=== PATIENT | female | born 1950 | race Caucasian/White ===

== ENCOUNTER 2017-02-06 10:44 | Emergency (ER) | payer OTHER ==
[~2017-02-06] VITALS: Ht 160 cm; Wt 89.8 kg
[2017-02-06] MEDS ORDERED: ADVIL200 M1 PO (10:51)
[2017-02-06] MEDS ORDERED: CARDIZEM CD240 MG PO (11:50)
[2017-02-06] MEDS ORDERED: PENICILLIN V P500 MG PO (11:50)
[2017-02-06] MEDS ORDERED: COUMADIN5 MG PO (11:50)
[2017-02-26] MEDS ORDERED: TURMERIC500 M1 PO (15:40)
[2017-02-26] MEDS ORDERED: METOPROLOL SUCC50 MG PO (15:41)
[2017-02-26] MEDS ORDERED: WARFARIN SODIUM5 MG PO (15:48)
[2017-04-30] MEDS ORDERED: ASPIRIN81 MG PO (14:38)
[2017-04-30] MEDS ORDERED: WARFARIN SODIUM5 MG PO (14:44)
== END 2017-02-06 12:31 | disposition home or self-care (01) ==
LOC: ED 10:44 → EDSEX 10:45 → ED 12:31
DX: I48.91 Unspecified atrial fibrillation (principal); J02.0 Streptococcal pharyngitis; F17.200 Nicotine dependence, unspecified, uncomplicated; Z79.899 Other long term (current) drug therapy
CPT/HCPCS: 71010; 80053; 83735; 84443; 84484; 85025; 96374; 99284

== ENCOUNTER 2017-08-06 20:34 | Emergency (ER) | payer SELFPAY ==
[~2017-08-06] VITALS: Ht 160 cm; Wt 90.7 kg
[~2017-08-06 20:34] MED LIST: ADVIL200 M1 PO; ASPIRIN81 MG PO; CARDIZEM CD240 MG PO; COUMADIN5 MG PO; PENICILLIN V P500 MG PO; TOPROL XL200 MG PO; TURMERIC500 M1 PO; WARFARIN SODIUM5 MG PO
[2017-08-07] MEDS ORDERED: MACROBID 100 M100 MG PO (00:19)
[2017-08-07] MEDS ORDERED: ONDANSETRON ODT4 MG SL (00:19)
--- NOTE | 2017-08-07 17:51 | EKG ---
[facility] [address] [facility] [place] [address] Signed Atrial fibrillation with rapid ventricular response Low voltage QRS Septal infarct , age undetermined Possible Inferior infarct , age undetermined Abnormal ECG When compared with ECG of 20-APR-2017 15:22, Nonspecific T wave abnormality now evident in Anterior leads Confirmed by SLY HILLIARD MD ([id number]) on 08/07/2017 5:51:04 PM Electronically Signed By: SLY HILLIARD MD 08/07/17 1751 PATIENT NAME: CHRISTAL HARDY Electrocardiogram DATE OF : 52 PHYSICIAN: SLY HILLIARD MD REPORT #: [id number] REPORT IS CONFIDENTIAL AND NOT TO BE RELEASED WITHOUT AUTHORIZATION
[2017-12-17] MEDS ORDERED: TOPROL XL200 MG PO (14:03)
== END 2017-08-07 00:47 | disposition home or self-care (01) ==
LOC: ED 20:34
DX: N39.0 Urinary tract infection, site not specified (principal); R42 Dizziness and giddiness; R19.7 Diarrhea, unspecified; R53.81 Other malaise; I48.91 Unspecified atrial fibrillation; Z87.891 Personal history of nicotine dependence; Z79.82 Long term (current) use of aspirin; Z79.01 Long term (current) use of anticoagulants; Z79.899 Other long term (current) drug therapy
CPT/HCPCS: 71045; 80053; 81001; 82550; 82553; 83874; 84484; 85025; 85610; 85730; 87088; 93005; 93010; 96361; 96374; 99284; J2405; J7030

== ENCOUNTER 2018-11-26 05:50 | Day surgery (SDC) | payer MEDICARE ==
[~2018-11-26] VITALS: Ht 160 cm; Wt 104.8 kg
[~2018-11-26 05:50] MED LIST changes: +HYDROCHLOROTH12.5 MG PO; +HYDROCHLOROTHIA25 MG PO; +MACROBID 100 M100 MG PO; +ONDANSETRON ODT4 MG SL; +WARFARIN SODIU2.5 MG PO
--- NOTE | 2018-11-26 08:17 | NUR ---
11/26/18 0817 Suzanne Day 0750 PT ARRIVED IN PACU SLEEPY WITH NO C/O'S. ABD SOFT AND PASSING FLATUS. 0800 PT AWAKE SITTING UP IN BED TALKING WITH STAFF. 0815 JANY AT BEDSIDE HELPING PT GET DRESSED.
--- NOTE | 2018-11-26 10:31 | OR ---
[facility] [address] [place], [place] [address] Signed DATE OF OPERATION: 11/26/2018 SURGEON: Lluvia Farah MD PREOPERATIVE DIAGNOSIS: Screening. POSTOPERATIVE DIAGNOSIS: Moderate sigmoid diverticulosis. PROCEDURE PERFORMED: Colonoscopy without biopsy. ESTIMATED BLOOD LOSS: None. INDICATIONS: Christal is a 68-year-old obese female who was asked to see me for her initial colonoscopy. She has no lower GI complaints. There is no family history of colon cancer or polyps. In the office, I gave her a pamphlet on colonoscopy and we looked at that together in detail. She understands the nature of the test along with the risks including, but not limited to gas bloating, crampy abdominal pain, bleeding, perforation, requiring surgery, and missed diagnosis. She also understands the need for IV conscious sedation. Given her very full face, heavy neck, and her medical history including her atrial fibrillation, we asked that an anesthesia provider help us with increased monitoring and sedation with propofol. She had expressed understanding and wished to proceed. PROCEDURE NOTE: Christal was taken into our endoscopy suite and placed in the left lateral decubitus position. She was given IV sedation with propofol per our nurse business services associate. As expected, she was in atrial fibrillation on the monitor. A digital rectal exam was performed and this was unremarkable. The adult colonoscope was introduced and advanced all around into the cecum under direct visualization of camera without difficulty. Her prep was good. The scope was slowly withdrawn. We took pictures throughout for photodocumentation. She does have diverticula in the sigmoid colon. They were moderate in size, minimal to moderate in number, and scattered about. The rectum was unremarkable. Upon retroflexion of scope, there was no additional pathology noted above the anal canal. After this, the gas was suctioned out and the colonoscope removed. Christal tolerated the procedure quite well. Electronically Signed By: LLUVIA FARAH MD 11/26/18 1031 PATIENT NAME: CHRISTAL HARDY OPERATIVE REPORT DATE OF : 52 REPORT #: [id number] PHYSICIAN: LLUVIA FARAH MD PCP: DEVYN SENIOR MD REPORT IS CONFIDENTIAL AND NOT TO BE RELEASED WITHOUT AUTHORIZATION [facility] [address] [place] [id number] Signed RECOMMENDATIONS: I can see Chrisatl back in the office in 10 years for repeat colonoscopy. MD CATARINO Brown/TREEL /[id number] cc: MD Devyn Barajas MD Andrew L Bower, MD Julio Cesar Doran DO Copies: RACHEL KAUR MD, MALCOLM MD BOWER, ANDREW L MD WARD, JAMES D DO ~ Electronically Signed By: LLUVIA FARAH MD 11/26/18 1031 PATIENT NAME: CHRISTAL HARDY OPERATIVE REPORT DATE OF : 52 REPORT #: [id number] PHYSICIAN: LLUVIA FARAH MD PCP: DEVYN SENIOR MD REPORT IS CONFIDENTIAL AND NOT TO BE RELEASED WITHOUT AUTHORIZATION
--- NOTE | 2018-11-26 13:21 | NUR ---
PT IS ALERT, ORIENTED AND SUPPORTED BY FAMILY. THIS IS PT'S FIRST SCOPE, PREP SEEMED TO BE TOLERABLE FOR PT. PT SEEMED PREPARED, EXTENDED A BLESSING. WILL FOLLOW NEEDED
== END 2018-11-26 08:20 | disposition home or self-care (01) ==
LOC: OPS 05:50 → DS 05:50 → OPS 06:45 → DS 06:45 → OPS 08:20
PROVIDERS: Colon & Rectal Surgery
PROC: 0DJD8ZZ Inspection of Lower Intestinal Tract, Via Natural or Artificial Opening Endoscopic (ICD-10-PCS; principal; 2018-11-26 06:45)
DX: Z12.11 Encounter for screening for malignant neoplasm of colon (principal); K57.30 Diverticulosis of large intestine without perforation or abscess without bleeding; Z79.899 Other long term (current) drug therapy; Z79.01 Long term (current) use of anticoagulants
CPT/HCPCS: G0121; J2704; J7120

== ENCOUNTER 2021-02-05 10:38 | Emergency (ER) | payer MEDICARE ==
[~2021-02-05] VITALS: Ht 160 cm; Wt 98.9 kg
[~2021-02-05 10:38] MED LIST changes: +ATORVASTATIN CA40 MG PO; +CITALOPRAM HBR20 MG PO; +FAMOTIDINE40 MG PO; -HYDROCHLOROTH12.5 MG PO; +LEXAPRO10 MG PO; +PROZAC10 MG PO; +TOPROL XL100 MG PO; +TRAZODONE HCL50 MG PO; +WARFARIN SODIU7.5 MG PO
--- NOTE | 2021-02-05 10:49 | NUR ---
Medications reconciled. Patient is chronically anticoagulated with warfarin and is a patient of [facility]
--- NOTE | 2021-02-05 18:05 | EKG ---
[facility] [address] [facility] [place] [address] Signed Sinus bradycardia Low voltage QRS T wave abnormality, consider anterior ischemia Prolonged QT Abnormal ECG When compared with ECG of 19-NOV-2018 13:42, Sinus rhythm has replaced Atrial fibrillation Minimal criteria for Anterior infarct are no longer present T wave inversion more evident in Anterior leads Confirmed by SLY HILLIARD MD ([id number]) on 02/05/2021 6:05:32 PM Electronically Signed By: SLY HILLIARD MD 02/05/21 1805 PATIENT NAME: CHRISTAL HARDY Electrocardiogram DATE OF : 52 PHYSICIAN: SLY HILLIARD MD REPORT #: [id number] REPORT IS CONFIDENTIAL AND NOT TO BE RELEASED WITHOUT AUTHORIZATION
== END 2021-02-05 13:37 | disposition short-term general hospital (02) ==
LOC: ED 10:38
DX: I63.9 Cerebral infarction, unspecified (principal); I48.91 Unspecified atrial fibrillation; Z87.891 Personal history of nicotine dependence; Z79.899 Other long term (current) drug therapy; Z79.01 Long term (current) use of anticoagulants; Z79.82 Long term (current) use of aspirin; Z20.822 Contact with and (suspected) exposure to COVID-19
CPT/HCPCS: 70450; 70496; 70498; 71045; 80053; 81001; 84484; 85025; 85610; 85730; 93005; 93010; 99285-25; Q3014; Q9967; U0003

== ENCOUNTER 2022-10-16 00:07 | Emergency (ER) | payer MEDICARE ==
[~2022-10-16] VITALS: Ht 160 cm; Wt 97.3 kg
[~2022-10-16 00:07] MED LIST changes: +ACETAMINOPHEN500 MG PO; +IBUPROFEN600 MG PO; +INDAPAMIDE1.25 MG PO; +OXYCODON-ACETA1 EAC2 PO; +TOPAMAX25 MG PO
--- NOTE | 2022-10-16 07:55 | EKG ---
[facility] [address] [facility] [place] [address] Signed Atrial fibrillation Low voltage QRS Nonspecific ST and T wave abnormality Prolonged QT Abnormal ECG Confirmed by SLY HILLIARD MD ([id number]) on 10/16/2022 7:54:42 AM Electronically Signed By: SLY HILLIARD MD 10/16/22 0755 PATIENT NAME: CHRISTAL HARDY Electrocardiogram DATE OF : 52 PHYSICIAN: SLY HILLIARD MD REPORT #: [id number] REPORT IS CONFIDENTIAL AND NOT TO BE RELEASED WITHOUT AUTHORIZATION
== END 2022-10-16 04:46 | disposition home or self-care (01) ==
LOC: ED 00:07
DX: A05.9 Bacterial foodborne intoxication, unspecified (principal); I48.91 Unspecified atrial fibrillation; Z87.891 Personal history of nicotine dependence; Z79.899 Other long term (current) drug therapy; Z79.01 Long term (current) use of anticoagulants
CPT/HCPCS: 36415; 74176; 76705; 80053; 83690; 84484; 85025; 85610; 93005; 93010; 96361; 96374; 96375; 99284-25; A9270; J1790; J2405; J7121

== ENCOUNTER 2024-08-09 10:55 | Inpatient (IN) | payer MEDICARE ==
[~2024-08-09] VITALS: Ht 160 cm; Wt 104.0 kg
[~2024-08-09 10:55] MED LIST changes: +ANASTROZOLE1 MG PO; +ATORVASTATIN CA80 MG PO; +CARTIA XT120 MG PO; +DICLOFENAC SODI50 GM TOP; +FLUOXETINE HCL20 MG PO; +METOPROLOL SUC200 MG PO; +TOPIRAMATE50 MG PO
[2024-08-09] MEDS ORDERED: BUDESONIDE8.43 ML NAS (11:13)
[2024-08-09 11:17] LABS: EOSINOPHILS 3.3 % (0-6); HEMATOCRIT 32.4 % (35.0-50.0); HEMOGLOBIN 9.8 g/dL (12.0-18.0); LYMPHOCYTES 12.1 % (24-44); MCH 24.1 (27-36); MCHC 30.3 g/dl (30-36); MCV 79.4 fl (81-99); MONOCYTES 17.3 % (0-12); NEUTROPHILS 64.3 % (39-80); PLATELET COUNT 147 K/uL (140-440); RBC 4.08 M/ul (4.3-5.7); RDW 17.9 (10.5-15.0)
[2024-08-09 11:23] LABS: PROTIME 75.5 Sec (11.2-14.2)
[2024-08-09 11:27] LABS: INR 9.08 (0.80-1.30)
[2024-08-09] MEDS ORDERED: METOPROLOL TARTRATE 5 MG/5 ML VIAL IV SCH (11:30)
[2024-08-09 11:33] LABS: ALBUMIN/GLOBULIN RATIO 0.73 (1.1-2.4); ANION GAP 11.6 (7-21); BUN/CREATININE RATIO 12.72 (6.0-28.6); CALCIUM 9.1 mg/dL (8.5-10.1); CREATININE, SERUM 2.2 mg/dL (0.55-1.02); MAGNESIUM 1.8 mg/dL (1.8-2.4); POTASSIUM 3.6 mmol/L (3.5-5.1); PROTEIN, TOTAL 7.1 g/dL (6.4-8.2)
[2024-08-09] MEDS ORDERED: PHYTONADIONE 10 MG in DEXTROSE 5% 50 ML IV ONE (11:45)
[2024-08-09] MEDS ORDERED: FUROSEMIDE 100 MG/10 ML VIAL IV ONE (12:30)
[2024-08-09] MEDS ORDERED: METOPROLOL SUCCINATE 50 MG TABCR PO ONE (12:45)
[2024-08-09 13:11] VITALS: BP 117/97
[2024-08-09] MEDS ORDERED: ondansetron HCL 4 MG/2 ML VIAL IV PRN (13:15)
[2024-08-09] MEDS ORDERED: ACETAMINOPHEN 325 MG TAB PO PRN (13:15)
--- NOTE | 2024-08-09 13:52 | NUR ---
PT REPORT RECIEVED FROM ER, RN. PT TRANSPORTED VIA STRETCHER TO MED/SURG ROOM 8. PT TOLERATED TRANSFER WELL. PT SECONDARY SKIN ASSESSMENT COMPLETED BY KULWINDER LINCOLN. PT GOWN/BEDDING CHANGED AND PUREWICK PLACED. PT CONNECTED TO TELE #7. PT CALL LIGHT WITHIN REACH NO CURRENT NEEDS AT THIS TIME.
--- NOTE | 2024-08-09 15:30 | NUR ---
PT LAYING IN BED WITH HEAD OF BED LEEVATED PT RESTING WITH EYES CLOSED CHEST RISE EQUAL BILAT. CALL LIGHT WITHIN REACH.
[2024-08-09] MEDS ORDERED: WARFARIN SODIUM5 MG PO (15:49)
--- NOTE | 2024-08-09 16:22 | NUR ---
PT IN BED WITH HEAD ELEVATED ABOVE 30 DEGREES, PT RESTING WITH EYS CLOSED AND CHEST RISE EQUAL BILAT. PT CALL LIGHT WITHIN REACH.
--- NOTE | 2024-08-09 17:30 | NUR ---
PT WAS CALLED BECAUSE HE TOOK THE ADMISSION PAPER WORK BY ACCIDENT HOME WITH HIM. SAID HE WILL RETURN TOMORROW THE 6TH IN THE MORNNING WITH THE PAPERS.
[2024-08-09 18:01] VITALS: BP 121/79
--- NOTE | 2024-08-09 18:30 | NUR ---
PT LAYING IN BED AWAKE PT USED CALL LIGHT TO ASK NURSING STAFF TO EMPTY PUREWICK CANISTER. PT HAS NO OTHER CONCERNS AT THIS TIME CALL LIGHT WITHIN REACH.
[2024-08-09 18:41] VITALS: BP 121/79
--- NOTE | 2024-08-09 18:45 | NUR ---
PT SCHEDULED ECHO IS NOW IN PT ROOM PENDING RESULTS. PT HAS NO CONCERNS AT THIS TIME CALL LIGHT WITHIN REACH.
--- NOTE | 2024-08-09 19:20 | NUR ---
REPORT RECEIVED FROM KULWINDER PADILLA AND KULWINDER PIMENTEL. ASSISTANT INVENTORY MANAGER IN ROOM AT THIS TIME. pt DENIES NEEDS.
[2024-08-09 20:11] VITALS: BP 105/61
--- NOTE | 2024-08-09 20:31 | NUR ---
pt RESTING IN BED 100% WITH 2L OXYGEN BY NC IN PLACE. TITRATED TO 1L OXYGEN BY NC, SPO2 94%. LUNG SOUNDS DIMINISHED THROUGHOUT. ASSESSMENT COMPLETE. 2+ EDEMA BLE. LEGS ELEVATED. REPOSITIONED HIGHER IN BED 2PA, pt ASSISTS. NEW ATTENDS, PUREWICK PLACED AT THIS TIME. REDNESS NOTED UNDER BREASTS BILATERALLY, AND IN GROIN AREA, DESENEX APPLIED. BED IN LOW POSITION. CALL LIGHT IN REACH. LIGHTS OFF IN ROOM.
[2024-08-09 20:33] VITALS: BP 105/61
[2024-08-09] MEDS ORDERED: MICONAZOLE NITRATE 1 EA BTL TOP SCH (21:00)
--- NOTE | 2024-08-09 22:44 | NUR ---
CHECKED ON pt. RESTING IN BED WITH EYES CLOSED, BREATHING EQUAL AND UNLABORED. NO DISTRESS NOTED.
[2024-08-10] VITALS (10 sets, daily range): BP systolic 94–106; BP diastolic 61–68
--- NOTE | 2024-08-10 01:14 | NUR ---
pt SLEEPING, AWAKENS TO VOICE. VSS. URINE COLLECTED, CLEAN CATCH AND SENT TO LAB. IV SITE FLUSHED WNL, SL. pt DENIES NEEDS. CALL LIGHT IN REACH.
[2024-08-10 01:20] LABS: BILIRUBIN, URINE NEGATIVE (negative); BLOOD/HGB, URINE MODERATE (Negative); KETONE, URINE NEGATIVE (Negative); LEUK ESTERASE, URINE SMALL (negative); NITRITE, URINE POSITIVE (negative); PH, URINE 5.5 (5-7)
[2024-08-10 01:30] LABS: BACTERIA, URINE 2+ /hpf (negative); CRYSTALS, URINE NONE SEEN (0-1+); EPITHELIAL CELLS, URINE SQUAMOUS 1+ /lpf (0-1+)
[2024-08-10 01:31] LABS: CASTS, URINE NONE SEEN \\lpf
[2024-08-10 01:32] LABS: COLLECTION TYPE, URINE CLEAN CATCH; REFLEX CULTURE, URINE Yes (No)
--- NOTE | 2024-08-10 03:00 | NUR ---
CHECKED On pt. RESTING IN BED WITH EYES CLOSED, 1L OXYGEN BY NC IN PLACE. BREATHING UNLABORED.
[2024-08-10 05:26] LABS: BASOPHILS 1.1 % (0-2); EOSINOPHILS 5.1 % (0-6); HEMATOCRIT 28.2 % (35.0-50.0); HEMOGLOBIN 8.8 g/dL (12.0-18.0); LYMPHOCYTES 25.7 % (24-44); MCH 24.4 (27-36); MCHC 31.2 g/dl (30-36); MCV 78.3 fl (81-99); MONOCYTES 18.3 % (0-12); NEUTROPHILS 49.8 % (39-80); PLATELET COUNT 119 K/uL (140-440)
--- NOTE | 2024-08-10 05:28 | NUR ---
FLOUR BROKER IN ROOM FOR BLOOD DRAW. pt AWAKE. ASSESSMENT COMPLETE. LUNG SOUNDS DIMINISHED, CLEAR, HR IRREGULAR RHYTHM 88-100. TELE IN PLACE. 2+ PITTING EDEMA BLE. REPOSITIONED pt IN BED WITH LEGS ELEVATED. 1L OXYGEN BY NC IN PLACE. NEW PUREWICK AND ATTENDS PLACED. NEAL CARE COMPLETE. CALL LIGHT IN REACH. BED IN LOW POSITION.
[2024-08-10 05:41] LABS: ANION GAP 8.2 (7-21); BUN/CREATININE RATIO 13.94 (6.0-28.6); CALCIUM 8.8 mg/dL (8.5-10.1); CREATININE, SERUM 2.08 mg/dL (0.55-1.02); MAGNESIUM 1.7 mg/dL (1.8-2.4); POTASSIUM 3.2 mmol/L (3.5-5.1)
--- NOTE | 2024-08-10 07:35 | NUR ---
MORNING PT REPORT RECIEVED FROM KULWINDER HULL. PT LAYING IN BED WITH HEAD ELEVATED. PT AWAKE AND HAS NO CONCERNS AT THIS TIME CALL LIGHT WITHIN REACH.
[2024-08-10 07:45] LABS: INR 1.66 (0.80-1.30); PROTIME 19.6 Sec (11.2-14.2)
[2024-08-10] MEDS ORDERED: MAGNESIUM SULFATE 2 GM/50 ML BAG IV SCH (08:00)
[2024-08-10] MEDS ORDERED: POTASSIUM CHLORIDE 10 MEQ TABCR PO ONE ×2 (08:00→12:00)
--- NOTE | 2024-08-10 08:07 | NUR ---
Patient is resting in bed watching TV. Fresh ice water was requested and given.
--- NOTE | 2024-08-10 08:30 | NUR ---
PT SITTING IN BED EATING BREAKFAST, PT STATES " SHE IS FEELING MUCH BETTER TODAY THEN SHE DID YESTERDAY". PT IN ROOM AND RETURNED THE ADMISSION PAPER WORK HE ACIDENTLY TOOK HOME WITH HIM. PT HAS CALL LIGHT WITHIN REACH.
[2024-08-10] MEDS ORDERED: CEFTRIAXONE/SODIUM CHLORIDE 1 GM/100 ML PIGGYBACK IV SCH (09:00)
[2024-08-10] MEDS ORDERED: FUROSEMIDE 40 MG/4 ML VIAL IV SCH (09:00)
[2024-08-10] MEDS ORDERED: METOPROLOL SUCCINATE 100 MG TABCR PO SCH (09:00)
[2024-08-10] MEDS ORDERED: FLUOXETINE HCL 20 MG CAP PO SCH (09:00)
[2024-08-10] MEDS ORDERED: FAMOTIDINE 20 MG TAB PO SCH (09:00)
--- NOTE | 2024-08-10 09:29 | NUR ---
PT NOT AVAILABLE FOR VISIT. PROVIDED PRAYER.
--- NOTE | 2024-08-10 10:31 | NUR ---
Case Management 1000: INTO SEE PATIENT. PERSONAL INFORMATION UPDATED. PATIENT LIVES AT HOME WITH AND HAS ONE STEP TO GET INTO THEIR RESIDENCE, SHE DENIES ANY DIFFCULTY GETTING INTO THE HOUSE OR OUT OF BED. SHE DOES NOT DRIVE BUT PATIENT DRIVES HER. DENIES ANY DIFFICULTY PAYING UTILITIES OR OBTAINING FOOD. PATIENT HAS A WALKER AND CANE THAT SHE USES AT HOME. WILL CONTINUE TO FOLLOW WITH CASE MANAGEMENT. NO NEEDS FROM US AT THIS TIME.
--- NOTE | 2024-08-10 10:39 | NUR ---
Patient is sitting up in their chair. RNs MARGARITO and Terrence in room.
--- NOTE | 2024-08-10 11:04 | NUR ---
PT WORKED WITH PT/OT PT WAS ABLE TO AMBULATE TO BATHROOM WITH CONTACT GAURD. PT WAS ABLE TO HAVE A BM WELL. PT IS BACK IN BED WITH NO OTHER CONCERNS AT THIS TIME. CALL LIGHT WITHIN REACH.
--- NOTE | 2024-08-10 11:28 | NUR ---
UR CLINICAL REVIEW: 2 MN FOR [facility]ERSAL[facility]-MEETS INPT CRITERIA FOR CHF MEDICARE INPT 08/09/24 @ 1240 ORDER MATCHES REG NO AUTH REQUIRED PER MEDICARE GUIDELINES DISCHARGE TO HOME WHEN STABLE
--- NOTE | 2024-08-10 11:42 | NUR ---
PATIENT IS SITTING UPRIGHT IN BED WITH BLE ELEVATED. IV FLUSHED WITH 10 ML NORMAL SALINE. IV MAGNESIUM SULFATE IS INFUSING AT THIS TIME. IV DRESSING IS CLEAN, DRY, AND INTACT. PATIENT GIVEN FRESH CUP OF ICE WATER. PUREWICK CANISTER EMPTIED. PO POTASSIUM CHLORIDE ADMINISTERED AT THIS TIME. MD AND PRIMARY RNS ROUNDED WITH THE PATIENT. PATIENT STATED NO FURTHER NEEDS AT THIS TIME. CALL LIGHT AND PERSONAL BELONGINGS ARE WITHIN REACH.
[2024-08-10] MEDS ORDERED: PHARMACY RENAL DOSE ADJUSTMENT 1 DOSE MISC PO SCH (12:00)
--- NOTE | 2024-08-10 12:01 | NUR ---
IN PT ROOM MD DONNELLY SPOKE WITH PT ABOUT DIAGNOSIS, AND POC. PT WAS AGREEABLE AND HAD NO CURRENT CONCERNS, PT SITTING UPRIGHT IN CHAIR WITH PUREWICK, AND O2 NC IN PLACE @ 1LPM SAT 93%. PT CALL LIGHT IN REACH.
--- NOTE | 2024-08-10 12:51 | NUR ---
PT SITTING UP IN CHAIR, PT HELPED REPOSITION IN CHAIR SO THEY COULD EAT THEIR LUNCH. PT HAS NO OTHER CONCERNS AT THIS TIME. CALL LIGHT WITHIN REACH.
--- NOTE | 2024-08-10 14:27 | NUR ---
Patient sitting up in chair. Requested 300ml of free water.
--- NOTE | 2024-08-10 15:20 | NUR ---
PT SITTING UPRIGHT IN CHAIR WATCHING TV. PT HAS NO CURRENT CONCERNS AT THIS TIME. PT HAS CALL LIGHT WITHIN REACH.
[2024-08-10] MEDS ORDERED: WARFARIN PER PHARMACY PROTOCOL PO SCH (16:00)
[2024-08-10] MEDS ORDERED: WARFARIN SOD 5 MG TAB PO SCH (16:00)
--- NOTE | 2024-08-10 16:37 | NUR ---
PT SITTING UP IN BED WATCHING TV WITH LIGHTS DIMMED. PT HAS NO CURRENT NEEDS AT THIS TIME CALL LIGHT WITHIN REACH.
--- NOTE | 2024-08-10 17:10 | NUR ---
medications reconciled. patient chronically anticoagulated with warfarin
--- NOTE | 2024-08-10 17:33 | NUR ---
PT SITTING UP IN BED EATING DINNER WITH HER AT BED SIDE. PT HAS NO CONCERNS AT THIS TIME CALL LIGHT WITHIN REACH.
--- NOTE | 2024-08-10 19:27 | EKG ---
[facility] [address] [facility] [place] [address] Signed Atrial fibrillation with rapid ventricular response Low voltage QRS Possible Anterolateral infarct , age undetermined Abnormal ECG When compared with ECG of 16-OCT-2022 00:55, No significant change was found Confirmed by Archie Quintero MD ([id number]) on 08/10/2024 7:27:22 PM Electronically Signed By: ARCHIE QUINTERO MD 08/10/[id number] PATIENT NAME: CHRISTAL HARDY Electrocardiogram DATE OF : 52 PHYSICIAN: ARCHIE QUINTERO MD REPORT #: [id number] REPORT IS CONFIDENTIAL AND NOT TO BE RELEASED WITHOUT AUTHORIZATION
--- NOTE | 2024-08-10 19:40 | NUR ---
REPORT RECEIVED FROM DAY SHIFT RN. PT LYING IN BED ALERT AND ORIENTED. DENIES NEEDS. WHITE BOARD UPDATED. CALL LIGHT IN REACH.
--- NOTE | 2024-08-10 21:10 | NUR ---
NEAL AREA, UNDER BREAST FOLD AND INGUINAL FOLD CLEANED AND WIPED DRY. RN APPLIED POWDER. PUREWICK CHANGED. ATTENDS PLACED ON. V/S AND I&O'S COMPLETED. WARM BLANKET PROVIDED. CALL LIGHT IN REACH.
--- NOTE | 2024-08-10 21:51 | NUR ---
EVENING ASSESSMENT COMPLETE. SCHEDULED MEDS ADMIN PER EMAR. PT DENIES PAIN OR NAUSEA. DENIES SOB AT REST. 1L/NC IN PLACE. SpO2 99%. FINE CRACKLES AUSCULTATED IN BILAT LOWER LUNGS. EDEMA NOTED BLE. PUREWICK PATENT WITH CLEAR YELLOW URINE. PT DENIES QUESTIONS OR CONCERNS. CALL LIGHT IN REACH.
--- NOTE | 2024-08-10 23:50 | NUR ---
PT RESTING IN BED WITH EYES CLOSED. RESPIRATIONS EVEN. CALL LIGHT IN REACH.
[2024-08-11] VITALS (11 sets, daily range): BP systolic 98–112; BP diastolic 54–80
--- NOTE | 2024-08-11 02:06 | NUR ---
PT RESTING WITH EYES CLOSED. AWAKENS EASILY. VS OBTAINED. SpO2 97% WITH 1L/NC. OXYGEN TITRATED TO OFF. CPOX IN PLACE. PT DENIES SOB. ASSESSMENT COMPLETE. NO FURTHER NEEDS.
--- NOTE | 2024-08-11 04:00 | NUR ---
PT AWAKE IN BED. SpO2 96% ON RA. HR 100'S. PT REPORTS SLIGHT SOB AFTER OXYGEN REMOVED. 1L/NC PLACED FOR COMFORT. NO FURTHER NEEDS.
[2024-08-11 05:21] LABS: BASOPHILS 0.9 % (0-2); EOSINOPHILS 3.6 % (0-6); HEMATOCRIT 28.5 % (35.0-50.0); HEMOGLOBIN 8.9 g/dL (12.0-18.0); LYMPHOCYTES 17.7 % (24-44); MCH 24.4 (27-36); MCHC 31.1 g/dl (30-36); MCV 78.6 fl (81-99); MONOCYTES 17.4 % (0-12); NEUTROPHILS 60.4 % (39-80); PLATELET COUNT 117 K/uL (140-440); RBC 3.63 M/ul (4.3-5.7); RDW 17.9 (10.5-15.0)
[2024-08-11 05:31] LABS: INR 1.42 (0.80-1.30); PROTIME 17.3 Sec (11.2-14.2)
[2024-08-11 05:32] LABS: ANION GAP 9.1 (7-21); BUN/CREATININE RATIO 13.36 (6.0-28.6); CALCIUM 8.7 mg/dL (8.5-10.1); CREATININE, SERUM 2.02 mg/dL (0.55-1.02); POTASSIUM 3.1 mmol/L (3.5-5.1)
--- NOTE | 2024-08-11 05:52 | NUR ---
LAB IN FOR MORNING DRAW. NEW PUREWICK PLACED AFTER NEAL CARE. VS AND I&O OBTAINED. PT REMAINS ON 1L/NC. SpO2 HIGH 90'S. PT DENIES SOB. SMALL AMOUNT H20 GIVEN. PT REMAINS WELL WITHIN FLUID RESTRICTION. NO FURTHER NEEDS. CALL LIGHT IN REACH.
--- NOTE | 2024-08-11 07:21 | NUR ---
MORNING REPORT RECIEVED FROM KULWINDER HUBER. PT CURRENTLY LAYING IN BED ON 1L NC O2 SAT @ 92% PT CALL LIGHT WITHIN REACH.
[2024-08-11] MEDS ORDERED: POTASSIUM CHLORIDE 10 MEQ TABCR PO SCH (07:45)
--- NOTE | 2024-08-11 08:25 | NUR ---
PT SITTING UPRIGHT IN BED, PT JUST RECIEVED BREAKFAST AND HAS NO CURRENT CONCERNS AT THIS TIME CALL LIGHT WTIHIN REACH.
[2024-08-11] MEDS ORDERED: FAMOTIDINE 20 MG TAB PO SCH (09:00)
--- NOTE | 2024-08-11 09:40 | NUR ---
PT IN ROOM SITTING UPRIGHT IN BED PT TELE BATTERY CHANGED CCU NOTIFIED. PT HAS NO CONCERNS AT THIS TIME. CALL LIGHT WITHIN REACH.
--- NOTE | 2024-08-11 11:06 | NUR ---
ALERT AND ORIENTED IN BED. STATES SHE HAS NO NEEDS AT HOME FROM AT THIS TIME. INFORMED WILL CONTINUE TO CHECK IN WITH HER WHILE SHE IS HERE.
--- NOTE | 2024-08-11 11:37 | NUR ---
PT SITTING IN ROOM WITH BED SIDE. PT REPORTS NO CURRENT NEEDS AT THIS TIME. CALL LIGHT WITHIN REACH.
--- NOTE | 2024-08-11 12:41 | NUR ---
PT SEEN BY MD DONNELLY. PT SITTING IN BED EATING LUNCH WITH HER BED SIDE. PT GIVEN I/S PER MD REQUEST. PT EDUCATED BY THIS RN HOW TO USE IT. CONTINUE TO REINFORCE USE OF I/S. PT CALL SHARI THAKKAR.
--- NOTE | 2024-08-11 13:18 | NUR ---
PT SITTING UP RIGHT IN BED PT HAS NO CONCERNS AT THIS TIME CALL LIGHT WITHIN REACH.
--- NOTE | 2024-08-11 14:27 | NUR ---
PT SITTING UPRIGHT IN BED WITH NO CURRENT NEEDS AT THIS TIME CALL LIGHT WITHIN REACH.
--- NOTE | 2024-08-11 15:13 | NUR ---
New purewick at 1500. Bed linens changed. PT working with patient.
--- NOTE | 2024-08-11 15:53 | NUR ---
PT LAYING IN BED WITH EYES CLOSED AND CHEST RISE EQUAL BILAT. PT HAS CALL LIGHT WITHIN REACH.
[2024-08-11] MEDS ORDERED: WARFARIN SOD 7.5 MG TAB PO SCH (16:00)
--- NOTE | 2024-08-11 16:32 | NUR ---
PT CURRENTLY LAYING IN BED WITH EYES CLOSED AND RESTING. CHEST RISE EQUAL BILAT. PT HAS CALL LIGHT WITHIN REACH.
--- NOTE | 2024-08-11 17:38 | NUR ---
PT SITTING UP IN BED EATING DINNER WITH NO CONCERNS AT THIS TIME. PT AT BED SIDE. PT CALL LIGHT WITHIN REACH.
--- NOTE | 2024-08-11 19:03 | NUR ---
PT SITTING IN ROOM WITH NO CONCERNS AT THIS TIME PT HAS CALL LIGHT WITHIN REACH.
--- NOTE | 2024-08-11 19:38 | NUR ---
REPORT RECEIVED FROM DAY SHIFT RN. PT LYING IN BED RESTING WITH EYES CLOSED. RESPIRATIONS EVEN. CALL LIGHT IN REACH. WHITE BOARD UPDATED.
[2024-08-11] MEDS ORDERED: POTASSIUM CHLORIDE 10 MEQ TABCR PO ONE (20:00)
--- NOTE | 2024-08-11 22:01 | NUR ---
PT RESTING WITH EYES CLOSED. AWAKENS EASILY. A&O X 4. EVENING ASSESSMENT COMPLETE. SCHEDULED MEDS ADMIN PER EMAR. PT DENIES PAIN OR NAUSEA. DENIES SOB. 1L/NC IN PLACE. SpO2 99%. LUNGS CLEAR/DIM THROUGHOUT. BLE EDEMA NOTED. BLE ELEVATED IN BED. TELE #[address] AFIB[address] HR 100'S. PUREWICK CHANGED AFTER NEAL CARE. ASSISTED TO REPOSITION IN BED. VS GWEN&O OBTAINED. SNACK PROVIDED. PT DENIES QUESTIONS OR CONCERNS. CALL LIGHT IN REACH.
[2024-08-12] VITALS (11 sets, daily range): BP systolic 88–117; BP diastolic 59–76
--- NOTE | 2024-08-12 | NUR ---
PT AWAKE IN BED. WATER FRESHENED. WARM BLANKET PROVIDED. NO FURTHER NEEDS.
--- NOTE | 2024-08-12 01:55 | NUR ---
PT RESTING IN BED WITH EYES CLOSED. RESPIRATIONS EVEN. CALL LIGHT IN REACH.
--- NOTE | 2024-08-12 03:26 | NUR ---
PT RESTING IN BED WITH EYES CLOSED. RESPIRATIONS EVEN. CALL LIGHT IN REACH.
--- NOTE | 2024-08-12 05:48 | NUR ---
PT RESTING IN BED WITH EYES CLOSED. AWAKENS TO TOUCH. VS AND I&O OBTAINED. ASSESSMENT COMPLETE. 1L/NC IN PLACE. SpO2 98%. PT DENIES SOB. LUNGS CLEAR/DIM THROUGHOUT. NO FURTHER NEEDS. CALL LIGHT IN REACH.
[2024-08-12 06:10] LABS: BASOPHILS 0.8 % (0-2); EOSINOPHILS 4.7 % (0-6); HEMATOCRIT 28.8 % (35.0-50.0); HEMOGLOBIN 8.9 g/dL (12.0-18.0); LYMPHOCYTES 20.9 % (24-44); MCH 24.5 (27-36); MCV 79.1 fl (81-99); MONOCYTES 16.2 % (0-12); NEUTROPHILS 57.4 % (39-80); PLATELET COUNT 117 K/uL (140-440); RBC 3.64 M/ul (4.3-5.7)
[2024-08-12 06:19] LABS: ANION GAP 9.2 (7-21); BUN/CREATININE RATIO 12.97 (6.0-28.6); CALCIUM 8.8 mg/dL (8.5-10.1); CREATININE, SERUM 1.85 mg/dL (0.55-1.02); MAGNESIUM 1.8 mg/dL (1.8-2.4); POTASSIUM 4.2 mmol/L (3.5-5.1)
[2024-08-12 06:21] LABS: INR 1.72 (0.80-1.30); PROTIME 20.2 Sec (11.2-14.2)
--- NOTE | 2024-08-12 07:25 | NUR ---
REPORT RECEIVED FROM TILE MOLDER HAND RN. PATIENT RESTING IN BED WITH EYES CLOSED. RESPIRATIONS EVEN AND UNLABORED. CALL LIGHT WITHIN REACH.
--- NOTE | 2024-08-12 08:45 | NUR ---
PATIEN RESTING IN BED. NOTED IV SITE TO BE LEAKING. DENEIS ANY CHEST PAIN OR SOB. LUNG SOUNDS DIM THOUGHOUT. EDEMA NOTED TO BILAT. LOWER EXTERMITIES. TELE IN PLACE. NOTED HR TO BE TACHY 110 - 130. AM MEDICATIONS ADMINSTERED. NOT BP TO BE LOW. HOLDING LASIX AND METOPROLOL AT THIS TIME. CALL LIGHT WITHIN REACH.
--- NOTE | 2024-08-12 09:02 | NUR ---
BRIEF VISIT TO INQUIRE IF VACUUM REPAIRER VISIT DESIRED. PT DECLINED VACUUM REPAIRER VISIT. WOODS MANAGER PROVIDED SUPPORTIVE PRESENCE, PRAYER. WILL RETURN CIRCUMTANCES ALLOW.
--- NOTE | 2024-08-12 09:43 | NUR ---
#20 IV PLACED TO RIGHT A/C. IV ROCEPHIN INFUSING FOR 30MINUTES.
--- NOTE | 2024-08-12 10:18 | NUR ---
PT NOT AVAILABLE FOR VISIT. PROVIDED PRAYER.
--- NOTE | 2024-08-12 10:44 | NUR ---
PATIENT OOB WITH THERAPY AT THIS TIME.
--- NOTE | 2024-08-12 11:00 | NUR ---
PATIENT RESTING IN BED. DENEIS ANY NEEDS AT THIS TIME. CALL LIGHT WITHIN REACH.
--- NOTE | 2024-08-12 12:15 | NUR ---
PATIENT ALERT AND ORIENTED IN BED. SPOUSE IN ROOM. DISCUSSED OXYGEN. SHE DOES NOT USE OXYGEN AT BASELINE. INFORMED IF HOME OXYGEN IS NEEDED WILL SET IT UP PRIOR TO DC TO HOME. NO PREFERENCE TO DME COMPANY AT THIS TIME. WILL DISCUSS WITH HER AGAIN IF SHE NEEDS OXYGEN ON DAY OF DISCHARGE. CURRENT PLAN IS TO WEAN OFF OXYGEN PRIOR TO DC TO HOME.
--- NOTE | 2024-08-12 12:28 | NUR ---
PATIENT RESTING IN BED WITH FAMILY AT BEDSIDE. LUNCH AT BEDSIDE. 0900 LASIX BEING ADMINSTERED AT THIS TIME, DUE TO BP'S BEING LOWER THIS AM. PATIENT WITH NO FURTHER NEEDS AT THIS TIME. CALL LIGHT WITHIN REACH.
--- NOTE | 2024-08-12 13:10 | NUR ---
PATIENT RESTING IN BED WITH FAMILY AT BEDSIDE. DENIES ANY NEEDS AT THIS TIME. CALL LIGHT WITHIN REACH.
--- NOTE | 2024-08-12 15:20 | NUR ---
PATIENT RESTING IN RECLINER. DENIES ANY NEEDS AT THIS TIME. CPOX PLACED TO MONITOR SAO2 AND WEAN OFF OXYGEN TRIAL.
[2024-08-12] MEDS ORDERED: WARFARIN SOD 5 MG TAB PO SCH (16:00)
--- NOTE | 2024-08-12 16:41 | NUR ---
PATIENT ASSISTED FROM RECLINER BACK TO BED. 1 PA ASSIST TOLLERASTED WELL. SCHEDULED MEDICATION ADMINSTERED. PATIENT DENIES ANY FURTHER NEEDS CALL LIGHT WITHIN REACH.
--- NOTE | 2024-08-12 17:48 | NUR ---
FOOD AND BEVERAGE INTERN STAFF IN ROOM TO OBTAIN VITALS.
--- NOTE | 2024-08-12 19:05 | NUR ---
REPORT RECEIVED FROM ACOSTA MIRAMONTES. pt RESTING IN THE BED. BOARD UPDATED. pt DENIES ANY OTHER NEEDS AT THIS TIME. CALL LIGHT WITHIN REACH.
--- NOTE | 2024-08-12 19:20 | NUR ---
CHANGED PATIENT'S PUREWICK AT 1900. DID NEAL CARE.
--- NOTE | 2024-08-12 19:49 | NUR ---
pt AND BELONGS TRANSFERRED VIA HOSPITAL BED FROM MS ROOM #108 TO #109 AT THIS TIME. PER DIRECT SUPPORT STAFF, FBC IN NEED OF PREVIOUS ROOM.
--- NOTE | 2024-08-12 20:45 | NUR ---
pt RESTING IN THE BED. ASSESSMENT DONE. IV ASSESSED, WNL. pt REPOSITIONED IN THE BED WITH THE HELP OF THIS RN AND BLOOD BANK ORDER CONTROL CLERK. VITAL SIGNS DONE. SCHEDULED MEDS ADMINISTERED. SNACK AND WATER PROVIDED. pt DENIES ANY OTHER NEEDS AT THIS TIME. CALL LIGHT WITHIN REACH.
--- NOTE | 2024-08-12 22:44 | NUR ---
pt RESTING IN THE BED WITH EYES CLOSED. RR EVEN AND UNLABORED. O2 SATURATION AT 95% ON 1LNC. CALL LIGHT WITHIN REACH.
[2024-08-13] VITALS (13 sets, daily range): BP systolic 96–117; BP diastolic 53–72
--- NOTE | 2024-08-13 01:29 | NUR ---
HVAC SERVICE TECH OBTAINED VITALS AND I&O. PT STATES NO NEEDS AT THIS TIME. CALL LIGHT WITHIN REACH.
--- NOTE | 2024-08-13 03:33 | NUR ---
pt RESTING IN THE BED WITH EYES CLOSED. RR EVEN AND UNLABORED. CALL LIGHT WITHIN REACH. pt TITRATED DOWN TO RA. pt SATTING AT 91 TO 93%
--- NOTE | 2024-08-13 05:15 | NUR ---
IN RM TO DO VS. PURE WICK CHANGED. pt DENIES ANY OTHER NEEDS AT THIS TIME. CALL LIGHT WITHIN REACH.
[2024-08-13 05:25] LABS: HEMATOCRIT 28.8 % (35.0-50.0); HEMOGLOBIN 9.2 g/dL (12.0-18.0); MCH 24.6 (27-36); MCHC 31.9 g/dl (30-36); MCV 77.2 fl (81-99); PLATELET COUNT 106 K/uL (140-440); RBC 3.73 M/ul (4.3-5.7); RDW 18.2 (10.5-15.0)
[2024-08-13 05:38] LABS: ANION GAP 7.5 (7-21); BUN/CREATININE RATIO 15.38 (6.0-28.6); CALCIUM 8.7 mg/dL (8.5-10.1); CREATININE, SERUM 1.69 mg/dL (0.55-1.02); MAGNESIUM 1.7 mg/dL (1.8-2.4); POTASSIUM 3.5 mmol/L (3.5-5.1)
[2024-08-13 05:39] LABS: INR 2.06 (0.80-1.30); PROTIME 23.3 Sec (11.2-14.2)
--- NOTE | 2024-08-13 05:59 | NUR ---
CONTRACT ADMINISTRATION COORDINATOR OBTAINED AND DOCUMENTED PT BED WEIGHT. PT STATES NO NEEDS AT THIS TIME. CALL LIGHT WITHIN REACH.
[2024-08-13 06:21] LABS: EOSINOPHILS, MANUAL DIFF 6; LYMPHOCYTES, MANUAL DIFF 31; MONOCYTES, MANUAL DIFF 8; NEUTROPHILS, MANUAL DIFF 55
--- NOTE | 2024-08-13 07:00 | NUR ---
REPORT RECEIVED FROM KULWINDER RAYMOND. PT AWAKE AND ALERT IN BED, DAUGHTER PRESENT AT BEDSIDE. TELE WITH HR OF 99. PT HAS NO NEEDS AT THIS TIME, CALL LIGHT IN REACH.
--- NOTE | 2024-08-13 08:35 | NUR ---
MORNING MEDICATIONS ADMINISTERED, SEE MAR. PT IS ASSISTED TO REPOSITION IN BED SO SHE MAY SIT UP AND EAT BREAKFAST. DAUGHTER IS PRESENT IN ROOM THROUGHOUT. PT CURRENTLY EATING BREAKFAST, NO OTHER REQUESTS AT THIS TIME, BED ALARM ON, CALL LIGHT IN REACH.
[2024-08-13] MEDS ORDERED: POTASSIUM CHLORIDE 10 MEQ TABCR PO ONE (09:00)
[2024-08-13] MEDS ORDERED: MAGNESIUM CHLORIDE 64 MG TABCR PO ONE (09:00)
--- NOTE | 2024-08-13 09:23 | NUR ---
ASSESSMENT COMPLETE. PT RESTING IN BED WITH HOB ELEVATED, DAUGHTER PRESENT IN ROOM. PTs IV IN R AC HAS LOOSE DRESSING, REINFORCED WITH TAPE AT THIS TIME. PT IS ALERT AND ORIENTED AND CONVERSING PLEASANTLY. PT REPORTS NUMBNESS/TINGLING IN HER HANDS THAT COMES AND GOES SINCE HER TIA IN 2018, CURRENTLY FEELING TINGLING ONLY. GROIN AND BREAST FOLDS CLEANED AND PATTED DRY, NO OPEN AREAS NOTED, NO REDNESS NOTED, DESENEX APPLIED ORDERED. PT HAS NO COMPLAINTS OF PAIN AT THIS TIME. NO SHORTNESS OF BREATH, SPO2 98% ON RA, LUNG SOUNDS CLEAR THROUGHOUT THOUGH DIM TO HER LEDA. PT REPORTS SHE HAS NOT BEEN MOVING MUCH HERE, SHE IS LOOKING FORWARD TO WORKING WITH PHYSICAL THERAPY TODAY. OCCASIONAL COUGH WITHOUT PRODUCTION NOTED. PT HAS NO REQUESTS AT THIS TIME. KULWINDER CHINCHILLA ARRIVES TO PROVIDE PT WITH CHF EDUCATION. CALL LIGHT IN REACH.
--- NOTE | 2024-08-13 09:51 | NUR ---
PATIENT IN CHAIR AT THIS TIME. CLERK OF WORKS ASSISTED PATIENT FROM BATHROOM TO CHAIR. CLERK OF WORKS ASSISTED PATIENT WITH WIPING AND THEN PROVIDED PATIENT WITH WADE MARTINEZ @ 1848. CALL LIGHT PLACED WITHIN REACH, NO FURTHER NEEDS AT THIS TIME.
--- NOTE | 2024-08-13 10:21 | NUR ---
PT UP IN RECLINER AT THIS TIME, DAUGHTER PRESENT AT BEDSIDE, STATES SHE IS WAITING FOR PHYSICAL THERAPY. PT HAS NO REQUESTS AT THIS TIME, CALL LIGHT IN REACH.
--- NOTE | 2024-08-13 10:22 | NUR ---
PATIENT UP IN RECLINER. DAUGHTER IN ROOM. DISCUSSED RECOMMENDATION BY CARDIAC REHAB NURSE, Cecilia NOVA RN, FOR CARDIOPULMONARY REHAB. PATIENT IS NOT OPEN TO THIS. STATES GOING OUT OF TOWN IS TOO MUCH FOR HER. DISCUSSED THE BENEFITS OF CARDIAC REHAB WITH PATIENT AND DAUGHTER. DAUGHTER STATES SHE WILL SPEAK WITH PATIENT FURTHER AND HER SPOUSE TO DISCUSS TRANSPORTATION NEEDS FOR CARDIOPULMONARY REHAB. INFORMED THEM NOTES FOR INPT STAY WILL BE SENT TO PCP AND THEY WILL HAVE TO SEND REFERRAL IF PATIENT DECIDES SHE WANTS TO PURSUE THIS TREATMENT. VERBALIZE UNDERSTANDING.
--- NOTE | 2024-08-13 10:39 | NUR ---
PT NOT AVAILABLE FOR VISIT. PROVIDED PRAYER.
--- NOTE | 2024-08-13 10:47 | NUR ---
PHYSICAL THERAPY CURRENTLY WORKING WITH PT. PT IV PUMP CLEARED AT THIS TIME, INTAKE RECORDED. PTs DAUGHTER REMAINS PRESENT ON COUCH IN ROOM. PT HAS NO REQUESTS AT THIS TIME, CONTINUES WITH THERAPY. CALL LIGHT IN REACH.
--- NOTE | 2024-08-13 11:38 | NUR ---
PTs PUREWICK ADJUSTED, BRIEF AND CHUX CHANGED, NEAL-CARE PROVIDED. PT HAS THREE REDDENED, NON BLANCHABLE SCABS TO R BUTTOCK AND ONE SCAB TO L BUTTOCK. BARRIER CREAM APPLIED TO BUTTOCKS, ALLEVYN PLACED TO TWO SCABS ON R BUTTOCK. PT REPOSITIONED IN BED, DAUGHTER PRESENT IN ROOM THROUGHOUT, PT HAS NO OTHER REQUESTS AT THIS TIME, CALL LIGHT IN REACH.
--- NOTE | 2024-08-13 13:48 | NUR ---
OCCUPATIONAL THERAPY WORKING WITH PT RIGHT NOW ABOUT TO ASSIST HER IN THE SHOWER. PTs DAUGHTER AND SIGNIFICANT OTHER ARE PRESENT AT THIS TIME. NO REQUESTS, CALL LIGHT IN REACH.
--- NOTE | 2024-08-13 14:30 | NUR ---
WHEN PATIENT WAS DONE WITH HER SHOWER WITH OCCUPATIONAL THERAPY. WE REPLACED ONE OF HER TELE LEADS. AND PUT THE PUREWICK BACK IN. DOESN'T NEED TO BE REPLACED UNTIL 2229. UNLESS OTHER DENNY. DAUGHTER IN ROOM. PATIENT IN BED.
[2024-08-13] MEDS ORDERED: dilTIAZem HCL 30 MG TAB PO ONE (15:15)
--- NOTE | 2024-08-13 15:22 | NUR ---
MD IN TO VISIT AND ASSESS PT. PT RESTING IN BED AT THIS TIME, DAUGHTER PRESENT AT BEDSIDE. PT QUESTIONS ANSWERED BY MD. NO OTHER REQUESTS AT THIS TIME, CALL LIGHT IN REACH.
--- NOTE | 2024-08-13 15:46 | NUR ---
MD NOTIFIED OF HELD MEDICATION D/T BLOOD PRESSURE PARAMETERS. MD REQUESTS MEDICATION BE RE-TIMED FOR THIS AFTERNOON IF PTs BLOOD PRESSURE INCREASES.
[2024-08-13] MEDS ORDERED: WARFARIN SOD 5 MG TAB PO SCH (16:00)
--- NOTE | 2024-08-13 16:46 | NUR ---
TAKING OFF RT SERVICE. PLEASE CALL WITH CONCERNS OR O2 USE.
--- NOTE | 2024-08-13 17:13 | NUR ---
PT DINNER TRAY SET UP. PTs IS PRESENT AT BEDSIDE. BLOOD PRESSURE RECHECK HAD SYSTOLIC BP OF 105, STILL BELOW PARAMETERS OF MDs ORDERED MEDICATION FOR HR CONTROL. PT ASSISTED TO REPOSITION IN BED, PT HELPS BY PUSHING WITH HER FEET WHEN BEING BOOSTED UP IN BED. NO OTHER REQUESTS, CALL LIGHT IN REACH.
--- NOTE | 2024-08-13 17:31 | NUR ---
PATIENT IS SITTING UPRIGHT IN BED WITH A VISITOR SITTING AT BEDSIDE. PATIENT DINNER TRAY IS SET UP IN FRONT OF THE PATIENT AND THE TV IS ON. PATIENT STATED NO NEEDS AT THIS TIME. CALL LIGHT AND PERSONAL BELONGINGS ARE WITHIN REACH.
--- NOTE | 2024-08-13 18:21 | NUR ---
PATIENT IS SITTING UPRIGHT IN BED WITH A VISITOR SITTING IN THE CHAIR AT BEDSIDE. PATIENT STATED NO NEEDS AT THIS TIME. CALL LIGHT AND PERSONAL BELONGINGS ARE WITHIN REACH.
--- NOTE | 2024-08-13 18:48 | NUR ---
PT RESTING IN BED WITH DAUGHTER AT BEDSIDE. PT BLOOD PRESSURE NOTED WITH SYSTOLIC OF 96. PT DENIES DIZZINESS, LIGHTHEADEDNESS, OR NAUSEA. PT HAS NO HAD MUCH INTAKE TODAY, APPROXIMATELY 400ML. PT ENCOURAGE TO TAKE MORE ORAL INTAKE AT THIS TIME. PT STATES SHE IS TIRED BECAUSE OF SHOWERING AND WORKING WITH PHYSICAL THERAPY TODAY. PT DENIES PAIN. NO OTHER REQUESTS AT THIS TIME, CALL LIGHT IN REACH.
--- NOTE | 2024-08-13 19:05 | NUR ---
REPORT RECEIVED FROM MAURO MIRAMONTES. pt RESTING IN THE BED. BOARD UPDATED. CALL LIGHT WITHIN REACH.
--- NOTE | 2024-08-13 20:25 | NUR ---
ASSESSMENT AND VITAL SIGNS DONE. pt RESTING IN THE BED. IV ASSESSED, WNL. pt DENIES ANY OTHER NEEDS AT THIS TIME. WATER REFRESHED. LUNG SOUNDS ARE CLEAR. CALL LIGHT WITHIN REACH.
[2024-08-14] VITALS (15 sets, daily range): BP systolic 93–132; BP diastolic 55–91
--- NOTE | 2024-08-14 00:05 | NUR ---
pt RESTING IN THE BED WITH EYES CLOSED. RR EVEN AND UNLABORED. CALL LIGHT WITHIN REACH.
--- NOTE | 2024-08-14 01:45 | NUR ---
pt RESTING IN THE BED. VS DONE. PURE WICK CHANGED. pt DENIES ANY OTHER NEEDS AT THIS TIME. CALL LIGHT WITHIN REACH.
--- NOTE | 2024-08-14 04:03 | NUR ---
pt RESTING IN THE BED WITH EYES CLOSED. RR EVEN AND UNLABORED. CALL LIGHT WITHIN REACH.
--- NOTE | 2024-08-14 05:10 | NUR ---
SUBSTANCE ABUSE CLINICIAN OBTAINED VITALS AND I&O. PT STATES NO NEEDS AT THIS TIME. CALL LIGHT WITHIN REACH.
[2024-08-14 05:28] LABS: EOSINOPHILS 4.7 % (0-6); HEMOGLOBIN 9.2 g/dL (12.0-18.0); LYMPHOCYTES 24.8 % (24-44); MCH 24.2 (27-36); MCHC 31.7 g/dl (30-36); MCV 76.4 fl (81-99); MONOCYTES 15.3 % (0-12); NEUTROPHILS 54.2 % (39-80); PLATELET COUNT 109 K/uL (140-440); RDW 18.2 (10.5-15.0)
[2024-08-14 05:43] LABS: ANION GAP 9.4 (7-21); BUN/CREATININE RATIO 15.03 (6.0-28.6); CALCIUM 8.8 mg/dL (8.5-10.1); CREATININE, SERUM 1.53 mg/dL (0.55-1.02); MAGNESIUM 1.6 mg/dL (1.8-2.4); POTASSIUM 3.4 mmol/L (3.5-5.1)
[2024-08-14 05:44] LABS: INR 2.44 (0.80-1.30); PROTIME 26.6 Sec (11.2-14.2)
--- NOTE | 2024-08-14 07:00 | NUR ---
REPORT RECEIVED FROM KULWINDER RAYMOND. PT IN BED WITH EYES CLOSED, RR EVEN AND UNLABORED. DAUGHTER NOTED RESTING ON COUCH. CALL LIGHT IN REACH.
[2024-08-14] MEDS ORDERED: MAGNESIUM CHLORIDE 64 MG TABCR PO ONE (08:00)
[2024-08-14] MEDS ORDERED: dilTIAZem HCL 30 MG TAB PO ONE (08:15)
[2024-08-14] MEDS ORDERED: POTASSIUM CHLORIDE 10 MEQ TABCR PO ONE (08:15)
--- NOTE | 2024-08-14 09:03 | NUR ---
MORNING MEDICATION ADMINISTERED, SEE OCT. ASSESSMENT COMPLETE. PT FINISHING BREAKFAST TRAY AT, EASILY SWINGS LEGS OUT OF BED AND SITS ON EDGE OF BED WITH ONLY VERBAL COACHING. PT REQUESTS TOILETING. PT AMBULATES WITH FWW AND VERBAL CUEING ONLY TO RESTROOM. LARGE BM AND VOID NOTED AT THIS TIME. ALLEVYN IN PLACE ON R BUTTOCK TO COVER SCABS NOTED YESTERDAY. TAPAN SANCHEZ STRIPS BED AT THIS TIME. PT AMBULATES TO RECLINER AND IS ENCOURAGED TO SIT UP FOR AWHILE. PTs DAUGHTER REMAINS IN ROOM AND ALSO ENCOURAGING PT TO STAY UP. NEAL-CARE PROVIDED AND FRESH BRIEF PLACED, NO PUREWICK AT THIS TIME TO ENCOURAGE PT TO AMBULATE AND USE RESTROOM. PT LUNG SOUNDS ARE DIMINISHED THROUGHOUT, PT DENIES SOB ON ROOM AIR. TELE IN PLACE WITH HR RANGING FROM 95-118. PT REPORTS THAT SHE FEELS "TINGLING OR ITCHING, I'M NOT SURE" IN BILAT HANDS AND ARMS. PT NOTED TO HAVE DRY SKIN, DISCUSSED USE OF LOTIONS, PT RECEPTIVE. PT STATES "AW, I WANTED TO STAY IN BED" AFTER SITTING IN RECLINER. PT LOW IN MOTIVATION TO AMBULATE OR REMAIN OUT OF BED. PT REMAINS UP IN RECLINER AT THIS TIME, IV ABX INFUSING WNL IN R AC. PT HAS NO OTHER REQUESTS, CALL LIGHT IN REACH, DAUGHTER AND TAPAN SANCHEZ REMAIN IN ROOM.
--- NOTE | 2024-08-14 10:47 | NUR ---
PT CURRENTLY WORKING WITH PHYSICAL THERAPY. PT HAS REMAINED SITTING UP IN RECLINER. PHYSICAL THERAPY REMAINS WITH PT.
--- NOTE | 2024-08-14 11:18 | NUR ---
PT CONTINUES WORKING WITH PHYSICAL THERAPY AT THIS TIME. DAUGHTER PRESENT IN PHYSICAL THERAPY ROOM. PT REPORTING ABRAMS. HR ON TELE NOTED TO BE SUSTAINED IN THE 130s.
--- NOTE | 2024-08-14 12:03 | NUR ---
MD IN TO VISIT PT AND DISCUSS PLAN OF CARE WITH PT AND PTs FAMILY. ALL QUESTIONS ANSWERED, PT AND PT FAMILY VERBALIZE UNDERSTANDING.
--- NOTE | 2024-08-14 12:40 | NUR ---
PT AMBULATES WITH FWW AND SBA TO RESTROOM. INCONTINENT PADS WET, CHANGED AT THIS TIME. PT ALSO VOIDS INTO TOILET. FRESH PADS APPLIED, NEAL-CARE PROVIDED. PT AMBULATES BACK TO BED, STATES SHE INTENDS TO TAKE A NAP. PT PRESENT AT BEDSIDE, ENCOURAGES PT TO AMBULATE MORE AND GET HERSELF SITUATED IN BED. PT HAS NO OTHER REQUESTS AT THIS TIME, CALL LIGHT IN REACH.
--- NOTE | 2024-08-14 12:55 | NUR ---
CHANGED PATIENT'S BED LINENS THIS MORNING WHEN WE GOT HER UP TO THE CHAIR.
--- NOTE | 2024-08-14 12:57 | NUR ---
WHEN PATIENT CAME BACK TO HER ROOM TO USE HER BATHROOM. PATIENT NEEDED A NEW TAPED ATTEND ON. THAN SHE WENT BACK TO WORK WITH PHYSICAL THERAPY.
[2024-08-14] MEDS ORDERED: FUROSEMIDE 20 MG/2 ML VIAL IV ONE (14:15)
--- NOTE | 2024-08-14 14:21 | NUR ---
PT RESTING WITH EYES CLOSED, RR EVEN AND UNLABORED. PT OPENS EYES WHEN THIS RN ENTERS, WINKS, AND CONTINUES RESTING. LUNG SOUNDS CLEAR IN BUL, DIMINISHED IN BLL. HEART SOUNDS HEARD IRREGULAR WITH TELE IN PLACE WITH HR RANGING FROM 99-106. PT IV IN R AC FLUSHES WNL, DRESSING REINFORCED WITH TAPE. EDEMA ON BLE NOTED MILDLY INCREASED FROM THIS AM FROM KNEE TO MID-THIGH. PT HAS NO COMPLAINTS AT THIS TIME, CALL LIGHT IN REACH.
--- NOTE | 2024-08-14 15:06 | NUR ---
PT ENCOURAGED TO USE THE RESTROOM. PT AMBULATES WITH FWW AND SBA, LARGELY INCTONTINENT. BRIEF IS CHANGED, FRESH PULL-UP AND PADS PROVIDED, NEAL-CARE PROVIDED.
--- NOTE | 2024-08-14 16:00 | NUR ---
NURSE AND I AND PATIENT WALKED 140 FEET ROUND TRIP ON MED SURG.
--- NOTE | 2024-08-14 16:17 | NUR ---
PATIENT IS BACK IN BED.
--- NOTE | 2024-08-14 17:04 | NUR ---
TELEMETRY BATTERY CHANGED. PT RESTING IN BED WITH EYES CLOSED, RR EVEN AND UNLABORED, BREATHING THROUGH MOUTH. PT REMAINS RESTING WHILE BATTERY IS CHANGED. CALL LIGHT IN REACH.
--- NOTE | 2024-08-14 17:34 | NUR ---
WHEN I WENT IN TO CHECK ON PATIENT AND ASK HER IF SHE WOULD LIKE TO GET UP TO THE CHAIR FOR DINNER SHE SAID THE CHAIR IS TO UNCONFORTABLE. HER IS FEEDING HER.
--- NOTE | 2024-08-14 17:37 | NUR ---
NOTIFIED FROM CCU PT HAD 9 BEATS WIDE COMPLEX VTACH - PT SITTING UP IN BED EATING DINNER WITH AT SIDE. PRIMARY RN UPDATED.
--- NOTE | 2024-08-14 18:41 | NUR ---
PT ENCOURAGED TO GET UP AND USE THE RESTROOM. PT REPORTS THAT SHE FELT LIKE VOIDING A COUPLE OF TIMES BUT WAS ABLE TO "HOLD IT BACK". PTs CHUX IS SATURATED, PULL-UP AND PADS SATURATED. PT AMBULATES WITH FWW AND SBA TO RESTROOM TO USE TOILET. PT EDUCATED ON HOW TO USE PULL CORD WHEN SHE IS FINISHED, PT VERBALIZES UNDERSTANDING. FRESH PULL-UP WITH PADS PROVIDED, WIPES AND TRASH CAN PROVIDED.
--- NOTE | 2024-08-14 18:48 | NUR ---
THIS RN RETURNS TO PT ROOM TO CHECK HOW PT IS DOING. PT IS COMPLETELY BACK IN BED AT THIS TIME. THIS RN ASKED PT WHY SHE DIDN'T USE THE PULL CORD TO CALL, PT SAYS "I JUST DID IT ALL MYSELF. IT WAS NO BIG DEAL." PT EDUCATED ONCE AGAIN ON USING THE CALL CORD FOR ASSISTANCE IN THE BATHROOM, PT VERBALIZES UNDERSTANDING. NO REQUESTS AT THIS TIME, CALL LIGHT IN REACH.
--- NOTE | 2024-08-14 19:35 | NUR ---
REPORT RECEIVED FROM MAURO MIRAMONTES. pt RESTING IN THE BED. BOARD UPDATED. RR EVEN AND UNLABORED. CALL LIGHT WITHIN REACH.
--- NOTE | 2024-08-14 21:00 | NUR ---
ASSESSMENT AND VITAL SIGNS DONE. pt RESTING IN THE BED. pt BP LOW. MD CALLED AND ASKED ABOUT HOLDING pt BP MED. MD STATED TO WAIT AND RECHECK BP IN ONE HOUR THEN POSSIBLY GIVE MED AT THAT TIME. PURE WICK PLACED. pt DENIES ANY OTHER NEEDS AT THIS TIME. CALL LIGHT WITHIN REACH.
--- NOTE | 2024-08-14 21:50 | NUR ---
pt BP RECHECKED WITH A BETTER RESULTS. MEDICATION ADMINISTERED. pt DENIES ANY OTHER NEEDS AT THIS TIME. CALL LIGHT WITHIN REACH.
--- NOTE | 2024-08-14 23:25 | NUR ---
pt RESTING IN THE BED. pt DENIES ANY NEEDS AT THIS TIME. CALL LIGHT WITHIN REACH.
[2024-08-15] VITALS (12 sets, daily range): BP systolic 99–126; BP diastolic 55–88
--- NOTE | 2024-08-15 01:45 | NUR ---
WILDERNESS GUIDE OBTAINED VITALS AND I&O. PT STATES NO NEEDS AT THIS TIME. CALL LIGHT WITHIN REACH.
--- NOTE | 2024-08-15 01:53 | NUR ---
pt RESTING IN THE BED WITH EYES CLOSED. RR EVEN AND UNLABORED. CALL LIGHT WITHIN REACH.
--- NOTE | 2024-08-15 03:30 | NUR ---
pt RESTING IN THE BED. pt DENIES ANY OTHER NEEDS AT THIS TIME. CALL LIGHT WITHIN REACH.
--- NOTE | 2024-08-15 05:18 | NUR ---
PAYROLL BENEFITS ADMINISTRATOR OBTAINED VITALS AND I&O. PT BED WEIGHT OBTAINED. PT STATES NO FURTHER NEEDS AT THIS TIME. CALL LIGHT WITHIN REACH.
[2024-08-15 05:34] LABS: BASOPHILS 1.1 % (0-2); EOSINOPHILS 4.6 % (0-6); HEMATOCRIT 29.4 % (35.0-50.0); HEMOGLOBIN 9.3 g/dL (12.0-18.0); LYMPHOCYTES 23.4 % (24-44); MCH 24.1 (27-36); MCHC 31.5 g/dl (30-36); MCV 76.5 fl (81-99); MONOCYTES 13.5 % (0-12); NEUTROPHILS 57.4 % (39-80); PLATELET COUNT 103 K/uL (140-440); RBC 3.84 M/ul (4.3-5.7); RDW 18.1 (10.5-15.0)
[2024-08-15 05:47] LABS: ANION GAP 8.3 (7-21); BUN/CREATININE RATIO 14.19 (6.0-28.6); CALCIUM 8.6 mg/dL (8.5-10.1); CREATININE, SERUM 1.55 mg/dL (0.55-1.02); MAGNESIUM 1.6 mg/dL (1.8-2.4); POTASSIUM 3.3 mmol/L (3.5-5.1)
--- NOTE | 2024-08-15 07:17 | NUR ---
REPORT RECEIVED FROM KULWINDER RAYMOND. PT AWAKE AND ALERT IN BED WATCHING TELEVISION. NO REQUESTS. CALL LIGHT IN REACH.
--- NOTE | 2024-08-15 08:08 | NUR ---
MORNING MEDICATIONS ADMINISTERED, SEE OCT. ASSESSMENT COMPLETE. PT IS IN BED WITH HOB ELEVATED, REFUSES GETTING UP TO RECLINER FOR BREAKFAST. LUNG SOUNDS ARE CLEAR BUL, DIMINISHED IN BLL. HR IRREGULAR, RANGING FROM 94-108 AT THIS TIME. PT REPORTS NO PAIN, NO NAUSEA, NO SOB, NO DISCOMFORT AT THIS TIME. PT REPORTING LONG SHE REMAINS IN BED SHE DOES NOT FEEL SHORT OF BREATH SO THIS IS PREFERRABLE FOR HER. DISCUSSED WITH PT IMPORTANCE OF EXERCISE FOR HER HEART, HER HEALTH, AND FOR HER EDEMA. PT ONLY GIVES GROAN IN RESPONSE, APPEARS APPREHENSIVE. PTs EDEMA APPEARS UNCHANGED FROM YESTERDAY, 1+ PITTING UP TO MID-THIGH. PT ASKING HOW THIS EDEMA CAN BE IMPROVED. EDUCATED PT ON CURRENT MEDICATIONS BEING ADMINISTERED WELL MOVEMENT AND EXCERISE TO ENCOURAGE FLUID MOVEMENT. PT VERBALIZES UNDERSTANDING, BUT UNSURE MOVEMENT WILL HELP HER. IV ABX INFUSING WNL IN R HAND. FRESH ICE WATER PROVIDED. PT BREAKFAST TRAY ARRIVES. PT HAS NO OTHER REQUESTS AT THIS TIME, BEGINS TO EAT BREAKFAST. CALL LIGHT IN REACH.
[2024-08-15] MEDS ORDERED: dilTIAZem HCL 30 MG TAB PO SCH (09:00)
[2024-08-15] MEDS ORDERED: POTASSIUM CHLORIDE 40 MEQ,LIDOCAINE HCL 1% 40 MG in DEXTROSE 5% 250 ML IV ONE (09:00)
[2024-08-15] MEDS ORDERED: MAGNESIUM SULFATE 2 GM/50 ML BAG IV SCH (09:00)
[2024-08-15] MEDS ORDERED: FUROSEMIDE 40 MG TAB PO SCH (09:00)
--- NOTE | 2024-08-15 09:47 | NUR ---
MEDICATION ADMINISTERED, SEE MAR. PT UP TO BATHROOM AT THIS TIME. PT PERFORMS OWN NEAL-CARE, FRESH PULL UP AND PADS PROVIDED. FRESH GOWN PROVIDED AT THIS TIME. PT AMBULATES WITH FWW AND SBA TO RECLINER AT THIS TIME, BLE ELEVATED. WARM, WET WASH CLOTH PROVIDED FOR HANDS AND FACE, WARM BLANKET PROVIDED. PT HAS NO OTHER REQUESTS AT THIS TIME, CALL LIGHT IN REACH.
--- NOTE | 2024-08-15 10:56 | NUR ---
MEDICATION ADMINISTERED, SEE MAR. PT COMPLAINS OF BURNING AT IV SITE, PT EDUCATED ON POTASSIUM ADMINISTRATION, PT VERBALIZES UNDERSTANDING. PT PROVIDED WITH PILLOW AND ICE PACK FOR HER HAND. NO OTHER REQUESTS AT THIS TIME, CALL LIGHT IN REACH.
--- NOTE | 2024-08-15 11:14 | NUR ---
BLOOD PRESSURE RECHECKED AT THIS TIME, PT REMAINS UP IN RECLINER. SYSTOLIC INCREASED FROM 99 TO 107. PT REPORTS THE ICE PACK ON HER HAND HAS IMPROVED THE BURNING OF HER IV "A LOT". NO OTHER REQUESTS, CALL LIGHT IN REACH.
[2024-08-15 14:23] LABS: INR 2.18 (0.80-1.30); PROTIME 24.4 Sec (11.2-14.2)
--- NOTE | 2024-08-15 15:34 | NUR ---
MEDICATION ADMINISTERED, SEE MAR. PT IS UP IN HER RECLINER AT THIS TIME. PTs ARRIVES TO VISIT. PT AMBULATES WITH INDEPENDENTLY WITH FWW TO RESTROOM, CHANGES PULL-UP AND PAD, DOES HER OWN NEAL-CARE, AND AMBULATES BACK TO RECLINER AND ELEVATED BLE. COVERS PT WITH A BLANKET. PT REPORTS NO NAUSEA, PAIN, OR DISCOMFORT AT THIS TIME. IV IN R HAND FLUSHES SLUGGISHLY, BUT PT REPORTS NO PAIN AND BRISK BLOOD RETURN IS NOTED. PT TELE IN PLACE, AFIB, HR RANGING BETWEEN 99-109, BUT SUSTAINS 120s WHEN PT IS AMBULATING. PT REPORTS SOB FROM AMBULATING LASTING "A FEW MINUTES" AND SUBSIDING AFTER ABOUT A MINUTE OF REST IN THE RECLINER. PT HAS NO OTHER REQUESTS AT THIS TIME, REMAINS IN ROOM, CALL LIGHT AND PERSONAL BELONGINGS IN REACH.
[2024-08-15] MEDS ORDERED: WARFARIN SOD 5 MG TAB PO SCH (16:00)
--- NOTE | 2024-08-15 18:45 | NUR ---
PT RESTING IN BED WITH EYES CLOSED, RR EVEN AND UNLABORED. TAPAN ELDRIDGE REPORTS THAT PTs ASSISTED PT BACK TO BED BEFORE HE LEFT FOR THE EVENING. CALL LIGHT IN REACH.
--- NOTE | 2024-08-15 20:26 | NUR ---
PT AWAKE, ALERT AND ORIENTED. ON ROOM AIR. LUNGS CLEAR BILAT, TELE IN PLACE. ABD LARGE FIRM LESLEY, LBM TODAY, EDEMA TO LE 1+ RED FEET/TOES, BRUISING ARMS HEALING. PUREWICK APPLIED AT THIST JOSÉ ANTONIO, RED VAGINAL/NEAL AREA POWDER APPLIED. ATTENDS IN PLACE, WAS INCONTINENT OF URINE. SKIN CARE DONE. TURNED AND REPOSITIONED, TOLERATED WELL. NO C/OPAIN, WATCHING TV.
--- NOTE | 2024-08-15 22:04 | NUR ---
RESTING, EYS CLOSED, NO S/SX DISTRESS. TURNS AND REPOSITIONS SELF IN BED. ONROOM AIR
[2024-08-16] VITALS (12 sets, daily range): BP systolic 98–116; BP diastolic 56–84
--- NOTE | 2024-08-16 01:58 | NUR ---
resting, eyes closed, purewick in place
[2024-08-16 05:34] LABS: BASOPHILS 1.1 % (0-2); EOSINOPHILS 4.3 % (0-6); HEMATOCRIT 29.1 % (35.0-50.0); HEMOGLOBIN 9.2 g/dL (12.0-18.0); LYMPHOCYTES 22.5 % (24-44); MCH 24.1 (27-36); MCHC 31.5 g/dl (30-36); MCV 76.6 fl (81-99); MONOCYTES 15.3 % (0-12); NEUTROPHILS 56.8 % (39-80); PLATELET COUNT 100 K/uL (140-440); RDW 18.1 (10.5-15.0)
[2024-08-16 05:45] LABS: INR 2.33 (0.80-1.30); PROTIME 25.6 Sec (11.2-14.2)
[2024-08-16 05:51] LABS: ANION GAP 5.5 (7-21); BUN/CREATININE RATIO 13.07 (6.0-28.6); CALCIUM 8.9 mg/dL (8.5-10.1); CREATININE, SERUM 1.53 mg/dL (0.55-1.02); POTASSIUM 3.5 mmol/L (3.5-5.1)
--- NOTE | 2024-08-16 06:24 | NUR ---
HAS SLEPT ALL THIS SHIFT, TELE#[address], AFIB RHYTHM. NO C/O PAIN OR TACHYCHARDIA. NO C/O CP OR SOB WITH EXERTION. ON ROOM AIR, HELPS WITH REPOSITONING. BRUISING ARMS HEALING. EDEMA TO LE, LEGS ELEVATED. DAILY BED WEIGHT 105.9 KG
--- NOTE | 2024-08-16 07:00 | NUR ---
REPORT RECEIVED FROM KULWINDER PITTS. PT RESTING IN BED AWAKE AND ALERT WATCHING TELEVISION, NO REQUESTS AT THIS TIME. CALL LIGHT IN REACH.
[2024-08-16] MEDS ORDERED: CEFDINIR 300 MG CAP PO SCH (09:00)
--- NOTE | 2024-08-16 10:52 | NUR ---
MEDICATIONS ADMINISTERED, SEE OCT. DISCUSSED PTs BP/HR WITH DR JACKMAN BEFORE MEDICATION ADMISTRATION. LOPRESSOR HELD AT THIS TIME, CARDIZEM ADMINISTERED REQUESTED BY DR JACKMAN. ASSESSMENT COMPLETE. PT LUNG SOUNDS CLEAR THROUGHOUT, SHE REPORTS NO SOB WHILE RESTING AND STATES "FEEL PRETTY GOOD!". PT HR RANGING BETWEEN 113-126 ON ASSESSMENT, RATE IRREGULAR. PTs EDEMA IS NOTED TO BE DECREASED FROM YESTERDAY, PT ALSO EXPRESSES THAT SHE FEELS ALCOHOL RUBBER IN HER LEGS AND HER THIGHS FEEL SOFTER. PT CURRENTLY RESTING IN BED WITH HOB ELEVATED, RESTING AFTER BREAKFAST. PT HAD BEEN UP IN RECLINER TO EAT BREAKFAST EARLIER. PT HAS NO OTHER REQUESTS AT THIS TIME, CALL LIGHT IN REACH.
--- NOTE | 2024-08-16 12:30 | NUR ---
PT REPEAT BLOOD PRESSURE IS 106/64(72) WITH HR RANGING FROM 96-109. NOTIFIED. PT IN BED EATING LUNCH AT THIS TIME, NO REQUESTS, CALL LIGHT IN REACH.
--- NOTE | 2024-08-16 15:49 | NUR ---
PT HR RANGING 91-100. PT REPORTS NO SOB WHILE RESTING IN RECLINER WITH BLE ELEVATED. TELE IN PLACE READING AFIB. PT REPORTING NO PAIN, NAUSEA, DYSURIA, OR DISCOMFORT. EDEMA NOTED TO BLE IS UNCHANGED FROM THIS AM. PT REPORTS THAT SHE HAS BEEN DOING HER ANKLE PUMPS WHILE IN BED AND MOVING HER FEET AND LEGS MORE OFTEN, SHE FEELS THIS MAY BE CONTRIBUTING TO HER DECREASE IN EDEMA. DISCUSSED WITH PT IMPORTANCE OF CONTINUING TO MOVE WELL HER MEDICATION CHANGE FROM IV LASIX TO PO LASIX. PT VERBALIZES UNDERSTANDING. PT AMBULATES WITH FWW INDEPENDENTLY TO RESTROOM AT THIS TIME, REMOVES SATURATED PULL UP AND PAD, PROVIDES OWN NEAL-CARE CARE, AND REPLACES PULL-UP AND PAD. PT WASHES HANDS, WASH CLOTH PROVIDED SO SHE MAY WASH HER FACE. PT AMBULATES TO BED. NO OTHER REQUESTS AT THIS TIME, CALL LIGHT IN REACH.
[2024-08-16] MEDS ORDERED: WARFARIN SOD 5 MG TAB PO SCH (16:00)
--- NOTE | 2024-08-16 17:05 | NUR ---
PT EATING DINNER WITH HER AT THIS TIME, NO REQUESTS, CALL LIGHT IN REACH.
--- NOTE | 2024-08-16 18:54 | NUR ---
PT AMBULATES INDEPENDENTLY WITH FWW TO RESTROOM. PULL-UP AND PAD ARE DRY AT THIS TIME. PT REMAINS IN BATHROOM TO ATTEMPT TO EMPTY BLADDER. REMAINS IN ROOM. NO OTHER REQUESTS AT THIS TIME.
--- NOTE | 2024-08-16 19:24 | NUR ---
Dr Flores notified of ICU's report of as per tele had a run of 15 beats of PVC's. pt on tele#7, afib rhythm. Pt denies CP or rapid heart beat. In bed, was visiting with at that time. BP 107/71 map78, r18, 996, 96% on room air. No new orders
--- NOTE | 2024-08-16 20:26 | NUR ---
alert and oriented to all. on room air, clear lungs bilat, no cough, denies SOB with exertion. Tele#[address] afib rhythm, denies any CP. Irregular HR. abd large soft, non tender, slightly red vaginal and betweeen gluteal folds, powder applied. much improve redness uner breast. no powder applied here. edema much improved trce below mid calf to 1+ ankles to toes, red coloring at this area too, elevated, good CMS, denies any c/o pain, cooperative with vitals, assessments and turning and repositoning. Pure wick on at her requests. Aware of need to ambulate more in am and of probable standing weight in am, stated understanding, fresh fluid at bedside. tolerating fluids restriction
--- NOTE | 2024-08-16 22:02 | NUR ---
resting eys closed, on room air, no s/sx distress. LE elevated. tele#7 afib rhythm. Pure wick in place
--- NOTE | 2024-08-17 00:04 | NUR ---
SLEEPING, EYES CLOSED, NO S/SX DISTRESS. TELE IN PLACE PURE WICK IN PLACE, LE ELEVATED
[2024-08-17 01:23] VITALS: BP 113/77
--- NOTE | 2024-08-17 04:11 | NUR ---
Resting, no s/sx pain, pure wick in place, draining tea colored urine. turns and repositions self in bed. On room air
[2024-08-17 05:15] VITALS: BP 128/89
[2024-08-17 05:17] VITALS: BP 128/89
--- NOTE | 2024-08-17 05:28 | NUR ---
Pt ahas slept all night, on room air, tele#7 afib with ocassional pair PVC's, denies CP, no sob noted with exertion. 104KG standing weight. Pure wick dc'd, plus was incontinent of urine. Up to BRP, voided unmesurable void x1. Edema to Le improved. cooperative. 1PA/FWW slight unsteadiness present. tolerating fluid restriction
--- NOTE | 2024-08-17 07:30 | NUR ---
RECIEVED REPORT FROM RN HONG. PT AWAKE BUT DENIES NEEDS.
--- NOTE | 2024-08-17 08:04 | NUR ---
PATIENT SITTING UP IN CHAIR RESTING WITH EYES CLOSED. WHITE BOARD UPDATED. CALL LIGHT IN REACH.
[2024-08-17 08:10] VITALS: BP 128/61
--- NOTE | 2024-08-17 08:17 | NUR ---
ADMINISTERED MEDS. PT SITTING UP IN CHAIR. DENIES PAIN OR DISCOMFORT. CALL LIGHT IN LAP.
--- NOTE | 2024-08-17 08:55 | NUR ---
INTO SEE PATIENT. PLAN OF CARE IS TO DISCHARGE TODAY. TO TAKE PATIENT HOME AT DISCHARGE. CHART NOTES WILL BE SENT TO PCP ONCE DISCHARGE IS COMPLETE.
[2024-08-17] MEDS ORDERED: FUROSEMIDE40 MG PO (09:21)
[2024-08-17] MEDS ORDERED: DILTIAZEM HCL30 MG PO (09:22)
[2024-08-17] MEDS ORDERED: POTASSIUM CHLO10 MEQ PO (09:22)
[2024-08-17 10:00] VITALS: BP 103/61
--- NOTE | 2024-08-17 10:11 | NUR ---
CHART NOTES FAXED TO PCP FOR OUTPATIENT THERAPY.
== END 2024-08-17 10:20 | disposition home or self-care (01) | DRG 292 ==
LOC: ED 10:55 → MS 12:41
PROVIDERS: Emergency Medicine; Family Medicine; ADMIT Student in an Organized Health Care Education/Training Program; ATTEND Student in an Organized Health Care Education/Training Program
DX: I50.21 Acute systolic (congestive) heart failure (principal); N17.9 Acute kidney failure, unspecified; N39.0 Urinary tract infection, site not specified; I48.91 Unspecified atrial fibrillation; N18.9 Chronic kidney disease, unspecified; E87.6 Hypokalemia; E83.42 Hypomagnesemia; F39 Unspecified mood [affective] disorder; E66.9 Obesity, unspecified; I27.20 Pulmonary hypertension, unspecified; I36.1 Nonrheumatic tricuspid (valve) insufficiency; Z86.73 Personal history of transient ischemic attack (TIA), and cerebral infarction without residual deficits; Z87.891 Personal history of nicotine dependence; Z98.890 Other specified postprocedural states; Z79.82 Long term (current) use of aspirin; Z79.01 Long term (current) use of anticoagulants; Z79.899 Other long term (current) drug therapy
CPT/HCPCS: 36415; 71045; 80048; 80053; 81001; 83735; 83880; 84484; 85025; 85610; 87088; 87186; 93306; 94760; 96374; 96375; 97161; 97165; 97530; 97535; 99285-25; A9270; J0696; J1940; J3430; J3475; J3480; J3490; J7060